=== PATIENT | male | born 1965 | race Caucasian/White ===

== ENCOUNTER 2019-11-09 08:18 | Inpatient (IN) | payer SELFPAY ==
[~2019-11-09] VITALS: Ht 172.7 cm; Wt 56.0 kg
--- NOTE | 2019-11-09 08:18 | NUR ---
PT TO ROOM VIA EMS STRETCHER. EMS REPORTS SYNCOPAL FALL TODAY. PT ALERT TO PERSON AND PLACE AT THIS TIME.
--- NOTE | 2019-11-09 08:20 | NUR ---
PT SKIN COOL TO THE TOUCH. RECTAL TEMP 95.1. BRUISING NOTED TO LEFT SIDE FOREHEAD, DEEP PURPLE WITH YELLOWING. PERRLA BUT SLUGGISH. PT SPEECH CLEAR, UNABLE TO ANSWER QUESTIONS APPROPRIATELY. PATIENT BILATERAL LS CLEAR. SPO2 97% ON ROOM AIR AT THIS TIME. OLD BRUISING NOTED TO BILATERAL LOWER EXTREMITIES AND RIGHT HIP.
[2019-11-09 08:50] LABS: HEMOGLOBIN 12.3 g/dl (14.0-18.0); IMMATURE GRANULOCYTES 3.8 % (0.0-5.0); MEAN CORPUSCULAR HGB 35.9 pG CALC (26.0-32.0); MEAN CORPUSCULAR HGB CONC 35.1 g/dL CAL (32.0-36.0); NEUT# 7.51 thou/uL (1.82-7.42); RED BLOOD COUNT 3.43 mill/uL (4.70-6.10); RED CELL DISTRI WIDTH 11.6 % (11.5-15.5); URINE BLOOD DIPSTICK NEGATIVE (NEGATIVE); URINE COLOR YELLOW; URINE GLUCOSE - DIPSTICK 100 mg/dL (NEGATIVE); URINE KETONE TRACE mg/dL (NEGATIVE); URINE LEUK ESTERASE NEGATIVE (NEGATIVE); URINE NITRITE - DIPSTICK NEGATIVE (Negative); URINE PROTEIN - DIPSTICK NEGATIVE (NEG-TRACE); URINE SPECIFIC GRAVITY 1.025
[2019-11-09 08:57] LABS: URINE BILIRUBIN - DIPSTICK NEGATIVE (NEGATIVE)
[2019-11-09 09:02] LABS: INTERNATIONAL NORMALIZED RATIO 1.4 RATIO (0.7-1.3); PROTHROMBIN TIME 14.5 SECONDS (9.0-12.5)
[2019-11-09 09:07] LABS: ALBUMIN 3.5 g/dL (3.2-5.0); ALKALINE PHOSPHATASE 128 u/l (38-126); ANION GAP 20 (6-22 (CALC)); BILIRUBIN, TOTAL 2.1 mg/dL (0.0-1.4); BUN 41 mg/dL (9-20); BUN/CREATININE RATIO 35 (12-20 (CALC)); CARBON DIOXIDE 29 mmol/l (22-30); CHLORIDE 82 mmol/l (95-108); CREATININE 1.2 mg/dL (0.7-1.3); ETHYL ALCOHOL 0 mg/dl (0-30); GFR > 60 ML/MIN (>=60 (CALC)); GFR FOR AFR.AMER. > 60 ML/MIN (>=60 (CALC)); POTASSIUM 2.6 mmol/l (3.5-5.1); SGOT/AST 71 u/l (17-59); SODIUM 129 mmol/l (137-146); TOTAL PROTEIN 7.1 g/dL (6.3-8.2)
--- NOTE | 2019-11-09 09:10 | NUR ---
AT BEDSIDE AT THIS TIME, DOESNT APPEAR TO BE ABLE TO ANSWER ANY QUESTIONS EITHER, VERY VAGUE.
--- NOTE | 2019-11-09 09:15 | NUR ---
KEEPS RAMBLING HOW SHE IS 20 YEARS OLDER THAN PT, AND THAT ONLY HIS DRINKING BEERS CAN STOP THE SEIZURES. 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 JUST LOOKS AT HER AND AGREES WITH WHAT EVER SHE SAYS ABOUT PT. STATES THAT HE DOESNT TAKE ANY MEDICATIONS , THAT SHE TOOK HIM OFF OF ANY MEDICATIONS HE WAS ON YEARS AGO. ALSO STATES THAT PTS LEG BECAME WEAK LAST NIGHT AROUND 8 PM. AND SHE LET HIM LAY DOWN ON FLOOR AND GAVE HIM PILLOWS AND BLANKETS TO SLEEP ON, THEN HE WOKE UP THIS AM HAVING A SEIZURE ON THE FLOOR, SO SHE CALLED EMS. SHE STATES HE ONLY HAD THE SEIZURE BECAUSE SHE HAD NOT GIVEN HIM ANY BEER LAST NIGHT.
--- NOTE | 2019-11-09 10:24 | NUR ---
IV FLUIDS INFUSING. MAG AND POTASSIUM INFUSING. PT REMAINS ALERT/BUT ALLOWS TO TALK ABOUT EVERYTHING FOR HIM.
--- NOTE | 2019-11-09 10:58 | NUR ---
UNABLE TO CALL REPORT TO MED SURG AT THIS TIME
--- NOTE | 2019-11-09 11:36 | NUR ---
PT REPORT GIVEN TO BRAD, AND PT TAKEN TO FLOOR PER STRETCHER WITH TELEMENTRY
[2019-11-09 11:55] VITALS: BP 101/74
--- NOTE | 2019-11-09 13:00 | NUR ---
PT ARRIVES TO ROOM 261 VIA STRETCHER FROM ER ACCOMPANIED BY NAVNEET DOWNING. PT IS DROWSY, DIFFICULT TO ROUSE, UNDER SEVERAL COVERS. AT BEDSIDE, DOES MOST OF THE TALKING FOR HIM IF ALLOWED. LUNGS CLEAR, RA. PT APPEARS DEBILITATED, SAYS CHRONIC ALCOHOL ABUSE. WHEN AWAKENED, PT IS APPROPRIATE.
[2019-11-09 15:33] VITALS: BP 97/64
--- NOTE | 2019-11-09 17:13 | NUR ---
PT CONTINUES TO REST UNDER SEVERAL COVERS IN THE BED, NO CHANGE IN STATUS. REMAINS AT BEDSIDE.
[2019-11-09 18:58] VITALS: BP 90/58
--- NOTE | 2019-11-09 19:05 | NUR ---
DAYSHIFT NURSE NOTIFIED MD WINDOW GLASS INSTALLER IN REGARDS TO RESULTS OF ABDOMINAL US AND DIET ORDER OBTAINED.
--- NOTE | 2019-11-09 19:30 | NUR ---
ASSESSMENT COMPLETED; PT. IS ABLE TO FOLLOW COMMANDS. IS AT BEDSIDE. PT. IS UNAWARE OF THE YEAR OR DATE AND PER HE DOESNT NORMALLY KNOW IT ANYHOW, THAT THIS IS NORMAL FOR HIM. HE IS ALERT TO PLACE AND SELF. BRUISE NOTED TO LEFT SIDE OF FOREHEAD PER PT'S IT IS FROM A FALL AT HOME. AT BEDSIDE ANSERING ALL QUESTIONS IN REGARDS TO PT. FOR HIM. PT. IS INCONTINENT OF A LARGE AMOUNT OF URINE AND FRANCINE CARE GIVEN AND NEW PADS AND GOWN APPLIED WELL NON-SKID SOCKS. INSTRUCTED TO CALL FOR ANY NEEDS. PT. IS DROWSY. CALL LIGHT IS IN REACH.
--- NOTE | 2019-11-09 21:18 | NUR ---
RESTING IN BED WITH EYES CLOSED. NO DISTRESS NOTED; AT BEDSIDE TO STAY THE NIGHT.
--- NOTE | 2019-11-09 23:40 | NUR ---
PT. RESTING IN BED WITH EYES CLOSED;RESP. EVEN AND UNLABORED. AT BEDSIDE AND DENIES NEEDS
[2019-11-09 23:49] VITALS: BP 97/65
[2019-11-10 03:55] VITALS: BP 97/61
--- NOTE | 2019-11-10 03:55 | NUR ---
NEURO CHECK WNL. NO DISTRESS NOTED. PT. DROWSY. ABLE TO REPOSITION SELF IN BED. VS OBTAINED AND SMALL INCONTINENCE OF URINE NOTED. BRIEF APPLIED AND PADS CHANGED. CALL LIGHT IS IN REACH. REMAINS AT BEDSIDE. IV'S X2 INTACT.
[2019-11-10 05:45] LABS: ALBUMIN 2.8 g/dL (3.2-5.0); ALKALINE PHOSPHATASE 116 u/l (38-126); ANION GAP 14 (6-22 (CALC)); BILIRUBIN, TOTAL 1.5 mg/dL (0.0-1.4); BUN 28 mg/dL (9-20); BUN/CREATININE RATIO 34 (12-20 (CALC)); CARBON DIOXIDE 29 mmol/l (22-30); CREATININE 0.8 mg/dL (0.7-1.3); GFR > 60 ML/MIN (>=60 (CALC)); GFR FOR AFR.AMER. > 60 ML/MIN (>=60 (CALC)); POTASSIUM 2.9 mmol/l (3.5-5.1); SGOT/AST 67 u/l (17-59); SODIUM 132 mmol/l (137-146); TOTAL PROTEIN 5.9 g/dL (6.3-8.2)
[2019-11-10 05:53] LABS: CHLORIDE 92 mmol/l (95-108)
--- NOTE | 2019-11-10 07:30 | NUR ---
RECIEVED REPORT FROM SALINA CARMICHAEL. PT RESTING IN LOW FOWLERS POSITION UPON ENTERING ROOM.INTRODUCED SELF TO PT AND DISCUSSED POC. RESPIRATIONS ARE EVEN AND UNLABORED. TELE IN PLACE.PT DENIES ANY PAIN OR DISCOMFORTS AT THIS TIME. ALL SAFTEY PRECAUTIONS IN PLACE WITH CALL LIGHT IN REACH. WILL CONTINUE TO MONITOR.
--- NOTE | 2019-11-10 07:40 | NUR ---
ASSESSMENT AND VITALS COMPLETED AT THIS TIME. AT BEDSIDE AT THIS TIME.PT IS A/O X2 AND INCONTIENT AT TIMES. BP 99/57, HR 73, O2 100% ON ROOM AIR. RESPIRATIONS ARE EVEN AND UNLABORED. LUNG SOUNDS ARE DIMINISHED. HEART RHYTHM IS NORMAL, TELE IN PLACE. BOWEL SOUNDS ARE ACTIVE, LAST REPORTED BM 11/08/19. RADIAL AND PEDAL PULSES ARE STRONG WITH NORMAL CAPILLARY REFILL. NO EDEMA IN ANY EXTREMITIES. PT DOES PRESENT WITH BRUISE ON LEFT FOREHEAD AND MULTIPLE SMALL ABRASIONS ON BILATERAL ELBOWS AND KNEES. ABRASIONS ARE CURRENTLY CLOSED AND SCABBED OVER.[employer] INFORMED THAT PT HAS ABRASSION ON BACK, BANDAID CURRENTLY COVERING. DRESSING IS CDI AT THIS TIME. STATES "THERE FROM HIM FALLING BEFORE WE CAME IN". PT REPORTED A 6/10 HEADACHE AND ABDOMEN PAIN. TYLENOL GIVEN WITH MORNING MEDS. StepsAwayITTER INFORMED IN REPORT THAT PT HAS BEEN DRINKING SINCE THE AGE OF 5, PT DRINKS A BEER A DAY TO HELP MANAGE SEIZURES.BED IS PADDED.OFFERED LIBRIUM WITH MORNING MEDS, PT ACCEPTED.PT DENIES ANY OTHER PAIN OR DISCOMFORTS AT THIS TIME. ALL SAFTEY PRECAUTIONS IN PLACE WITH CALL LIGHT IN REACH. WILL CONTIUE TO MONITOR
[2019-11-10 07:44] VITALS: BP 99/57
--- NOTE | 2019-11-10 10:26 | NUR ---
PHYSICAL THERAPY AT BEDSIDE WORKING WITH PATIENT.
[2019-11-10 11:17] VITALS: BP 93/61
--- NOTE | 2019-11-10 12:00 | NUR ---
PT RESTING IN SEMI FOWLERS POSITION WATCHING TV WITH AT BEDSIDE. REPIRATIONS ARE EVEN AND UNLABORED. IV FLUIDS RUNNING AT 125 ORDERED, SITE APPEARS HEALTHY AND PATNET. PT DENIES ANY PAIN OR DISCOMFORTS AT THIS TIME. ALL SAFTEY PECAUTIONS REMAIN IN PLACE WITH CALL LIGHT IN REACH.
--- NOTE | 2019-11-10 12:17 | NUR ---
AT BEDSIDE DISCUSSING POC WITH PT AND SPOUSE,INCLUDING THE POSSIBILITY OF BEING D/C HOME.
[2019-11-10] MEDS ORDERED: LIBRIUM25 M1 PO (12:38)
--- NOTE | 2019-11-10 12:43 | NUR ---
PT STANDY BY ASSIST TO CHAIR WITH [facility]A CERVANTES
--- NOTE | 2019-11-10 12:46 | NUR ---
LAB AT BEDSIDE
[2019-11-10 13:23] LABS: MAGNESIUM 1.8 mg/dL (1.6-2.3); POTASSIUM 2.9 mmol/l (3.5-5.1)
--- NOTE | 2019-11-10 13:33 | NUR ---
PT SPOUSE REQUESTING HOME HEALTH. ENEDINA,ANGELICA AND CASE MANAGEMENT NOTIFIED.
[2019-11-10] MEDS ORDERED: KLOR-CON M2020 MEQ PO (14:12)
--- NOTE | 2019-11-10 14:47 | NUR ---
EDUCATED PT ON DISCHARGE INSTRUCTIONS AND NEW MEDICATIONS. PT VERBALIZED UNDERSTANDING. AT BED SIDE AT THIS TIME, VERBALIZED UNDERSTANDING.BOTH IVS REMOVED AT THIS TIME. BOTH CATHATERS INTACT UPON REMOVAL. PT TOLERATED WELL. AWAITING TRABSPORTATION AT THIS TIME. PT DENIES ANY PAIN OR DISCOMFORTS AT THIS TIME. ALL SAFTEY PRECAUTIONS IN PLACE WITH CALL LIGHT IN REACH.
--- NOTE | 2019-11-10 14:52 | NUR ---
ALL DISCHARGE INSTRUCTIONS PROVIDED BY BILLY JO TO PT AND SPOUSE;PT INSTRUCED TO STOP ALCOHOL USAGE,USE THE LIBRIUM NEEDED FOR ALCOHOL WITHDRAWL SYMPTOMS,NEED TO GET TO ALCOHOL ABUSE PROGRAM,TO HELP WITH STOPPING,KEEP WELL HYDRATED AND GOOD ORAL INTAKE.RX FOR POTASSIUM AND LIBRIUM PROVIDED;PT AND SPOUSE DENY ANY ADDITIONAL NEEDS OR QUESTIONS;IV SITE REMOVED WITH CATHETER INTACT AND TELE MONITORING D/C AT THIS TIME;WHEELCHAIR TO BE PROVIDED FOR D/C HOME.[facility] TO BE CALLED FOR TRANSPORTATION HOME PER SPOUSE REQUEST.
--- NOTE | 2019-11-10 14:53 | NUR ---
Discharge instructions given. Patient verbalizes understanding of same. Discharged in stable condition via Wheelchair to Home with spouse. All belongings sent with pt. PT TRANSPORTED TO [facility] IN STABLE CONDITION VIA WHEELCHAIR ACCOMPANIED BY BILLY JO AND SPOUSE. [facility] WAS CALLED BY [facility] PER SPOUSE REQUEST FOR TRANSPORTATION HOME.SPOUSE REPORTS THAT SHE HAS MONEY TO PAY FOR RIDE HOME.
== END 2019-11-10 14:53 | disposition home or self-care (01) | DRG 641 ==
LOC: ED 08:18 → ED-I 10:12 → ED 10:27 → ED-I 10:28 → MS2 10:28
PROVIDERS: Family Medicine; Nurse Practitioner Family; ADMIT Internal Medicine; ATTEND Internal Medicine
DX: E87.1 Hypo-osmolality and hyponatremia (principal); E87.6 Hypokalemia; F10.20 Alcohol dependence, uncomplicated; K70.10 Alcoholic hepatitis without ascites; T68.XXXA Hypothermia, initial encounter; Z20.828 Contact with and (suspected) exposure to other viral communicable diseases
CPT/HCPCS: J0692; J1650; J3475